=== PATIENT | male | born 1985 | race African-American/Black ===

== ENCOUNTER 2017-05-08 07:10 | Emergency (ER) | payer OTHER, SELFPAY ==
[2017-05-08] MEDS ORDERED: Ibuprofen 200 MG TAB ONE (07:26)
[2017-05-08] MEDS ORDERED: Ondansetron HCl/PF 4 MG/2 ML Vial ONE (07:54)
[2017-05-08 08:12] LABS: #Basophils 0.2 thou/uL (0.0-0.2); #Lymphocytes 0.8 thou/uL (1.20-3.40); #Neutrophils 16.5 thou/uL (1.40-6.50); %Lymphocytes 4.3 % (21.0-51.0); %Monocytes 5.3 % (0.0-10.0); Hematocrit 42.2 % (42.0-52.0); Mean Platelet Volume 6.7 fL (7.4-10.4); Red Blood Cell (RBC) Count 4.74 mill/uL (4.70-6.10); White Blood Cell (WBC) Count 18.5 thou/uL (4.8-10.8)
[2017-05-08 08:22] LABS: ALT (SGPT) 14 U/L (8-55); AST (SGOT) 12 U/L (5-34); Alkaline Phosphatase 65 U/L (40-150); Anion Gap 15 mmol/L (10-20); BUN (Urea Nitrogen) 9 mg/dL (8.9-20.6); Calc. Creatinine Clearance 0 mL/min (70-130); Calcium 8.6 mg/dL (7.8-10.44); Carbon Dioxide 20 mmol/L (22-29); Chloride 107 mmol/L (98-107); Estimated GFR-MDRD Greater than 90; Globulin 2.6 g/dL (2.4-3.5); Protein, Total 5.9 g/dL (6.0-8.3)
--- NOTE | 2017-05-08 09:21 | RAD ---
EXAM: 2 VIEWS: HISTORY: Fever. Cough. Sore throat. COMPARISON: None. FINDINGS: Normal cardiac silhouette. Patchy interstitial and alveolar infiltrates. Costophrenic angles are c lear. No pneumothorax or osseous abnormalities. IMPRESSION: Patchy interstitial and alveolar infiltrates. Continued surveillance to ensure resolution is recomm ended. POS: [facility]
[2017-05-08] MEDS ORDERED: cefTRIAXone\\ROCEPHIN 2 GM VIAL ONE (09:33)
[2017-05-08 09:38] LABS: Lactic Acid - Sepsis 1.4 mmol/L (0.5-2.2)
[2017-05-08] MEDS ORDERED: Sodium Chloride 0.9% 100 ML ONE (09:40)
[2017-05-08] MEDS ORDERED: Azithromycin 500 MG VIAL ONE (10:18)
== END 2017-05-08 11:40 | disposition home or self-care (01) ==
LOC: SCSER 07:10
DX: J84.9 Interstitial pulmonary disease, unspecified (principal)
CPT/HCPCS: 36415; 71020; 80053; 83605; 85025; 87040; 87081; 87430; 96361; 96365; 96367; 96375; J0456; J0696; J2405; J7050